=== PATIENT | male | born 1970 | race Hispanic/Latino ===

== ENCOUNTER 2021-02-16 23:24 | Emergency (ER) | payer BC ==
[~2021-02-16] VITALS: Ht 180.3 cm; Wt 122.5 kg
[2021-02-16 23:53] LABS: BASOPHILS # (AUTO) 0.1 (0.0-0.1); BASOPHILS % 0.9 % (0.0-1.0); EOSINOPHILS # (AUTO) 0.1 (0.0-0.4); EOSINOPHILS % 0.9 % (0.0-6.0); HEMATOCRIT 44.1 % (38.2-49.6); HEMOGLOBIN 15.4 g/dL (14.0-18.0); LYMPHOCYTES # (AUTO) 1.6 (1.0-3.2); LYMPHOCYTES % 24.4 % (18.0-39.1); MEAN CORPUSCULAR HGB CONC 34.9 g/dL (31-35); MEAN CORPUSCULAR VOLUME 88.9 fL (81-99); MONOCYTES # (AUTO) 0.6 (0.2-0.8); MONOCYTES % 9.1 % (4.4-11.3); NEUTROPHILS # (AUTO) 4.3 (2.1-6.9); PLATELET COUNT 251 x10e3/uL (140-360); RED BLOOD COUNT 4.96 x10e6/uL (4.3-5.7); RED CELL DISTRIBUTION WIDTH 13.7 % (11.7-14.4)
[2021-02-16 23:55] LABS: CLARITY,URINE CLEAR (CLEAR); COLOR,URINE YELLOW (YELLOW); LEUKOCYTE ESTERASE ,URINE NEGATIVE (NEGATIVE); NITRITE,URINE NEGATIVE (NEGATIVE); PROTEIN,URINE DIPSTICK 1+ (NEGATIVE)
[2021-02-16 23:56] LABS: AMPHETAMINES SCREEN,URINE NEGATIVE (NEGATIVE); BENZODIAZEPINES SCREEN,URINE NEGATIVE (NEGATIVE); KETONES,URINE TRACE (NEGATIVE); PHENCYCLIDINE SCREEN,URINE NEGATIVE (NEGATIVE); URINE UROBILINOGEN 1 mg/dL (0.2 - 1)
[2021-02-17 00:01] LABS: BACTERIA,URINE MODERATE /HPF
[2021-02-17 00:11] LABS: ALBUMIN 4.1 g/dL (3.5-5.0); ALBUMIN/GLOBULIN RATIO 1.3 (0.8-2.0); ANION GAP 16.4 mmol/L (8-16); CALCIUM 8.9 mg/dL (8.4-10.2); CREATININE, SERUM 0.9 mg/dL (0.72-1.25); POTASSIUM 3.4 mmol/L (3.5-5.1)
[2021-02-17 00:18] LABS: CREATINE KINASE MB 17.7 ng/mL (0-5.0)
== END 2021-02-17 02:25 | disposition home or self-care (01) ==
LOC: ER 23:59
DX: R00.2 Palpitations (principal); R06.00 Dyspnea, unspecified; F14.10 Cocaine abuse, uncomplicated; N39.0 Urinary tract infection, site not specified; F17.210 Nicotine dependence, cigarettes, uncomplicated
CPT/HCPCS: 36415; 70450; 71045; 80053; 80307; 81001; 82550; 82553; 84484; 85025; 93005; 99284

== ENCOUNTER 2021-04-18 10:05 | Emergency (ER) | payer BC ==
[~2021-04-18] VITALS: Ht 177.8 cm; Wt 99.8 kg
[2021-04-18] MEDS ORDERED: KETOROLAC TROMETHAMINE 30 MG/ML VIAL IM STA (10:55)
[2021-04-18] MEDS ORDERED: COLCRYS0.6 MG PO (11:02)
[2021-04-18] MEDS ORDERED: PEPCID20 MG PO (11:02)
[2021-04-18] MEDS ORDERED: NAPROXEN250 MG PO (11:02)
[2021-04-18 12:59] VITALS: BP 165/99
== END 2021-04-18 13:03 | disposition home or self-care (01) ==
LOC: ER 10:31
DX: M10.9 Gout, unspecified (principal); M25.861 Other specified joint disorders, right knee; I10 Essential (primary) hypertension
CPT/HCPCS: 73560; 99283; J1885

== ENCOUNTER 2021-10-17 12:41 | Emergency (ER) | payer BC, OTHER ==
[~2021-10-17] VITALS: Ht 177.8 cm; Wt 117.9 kg
[~2021-10-17 12:41] MED LIST: COLCRYS0.6 MG PO; NAPROXEN250 MG PO; PEPCID20 MG PO
[2021-10-17] MEDS ORDERED: IBUPROFEN 600 MG TAB PO STA (12:51)
[2021-10-17] MEDS ORDERED: IBUPROFEN600 MG PO (13:29)
== END 2021-10-17 14:03 | disposition home or self-care (01) ==
LOC: ER 12:50
DX: S82.62XA Displaced fracture of lateral malleolus of left fibula, initial encounter for closed fracture (principal); M25.572 Pain in left ankle and joints of left foot; X50.1XXA Overexertion from prolonged static or awkward postures, initial encounter; Y93.01 Activity, walking, marching and hiking; Y92.89 Other specified places as the place of occurrence of the external cause; I10 Essential (primary) hypertension; M10.9 Gout, unspecified
CPT/HCPCS: 99283

== ENCOUNTER 2022-09-11 01:20 | Emergency (ER) | payer BC ==
[~2022-09-11] VITALS: Ht 177.8 cm; Wt 117.9 kg
[~2022-09-11 01:20] MED LIST changes: +IBUPROFEN600 MG PO
[2022-09-11] MEDS ORDERED: IBUPROFEN 600 MG TAB PO STA (01:44)
[2022-09-11] MEDS ORDERED: ACETAMINOPHEN 325 MG TAB PO ONE (01:45)
[2022-09-11] MEDS ORDERED: SODIUM CHLORIDE 0.9% 1000ML 1,000 ML IV SCH (01:45)
[2022-09-11 01:54] LABS: BASOPHILS % 0.4 % (0.0-1.0); EOSINOPHILS % 0.6 % (0.0-6.0); HEMATOCRIT 45.9 % (38.2-49.6); HEMOGLOBIN 14.8 g/dL (14.0-18.0); LYMPHOCYTES # (AUTO) 1.2 (1.0-3.2); LYMPHOCYTES % 18.4 % (18.0-39.1); MEAN CORPUSCULAR HEMOGLOBIN 30.3 pg (28-32); MEAN CORPUSCULAR HGB CONC 32.2 g/dL (31-35); MEAN CORPUSCULAR VOLUME 94.1 fL (81-99); MONOCYTES # (AUTO) 0.6 (0.2-0.8); MONOCYTES % 8.8 % (4.4-11.3); NEUTROPHILS # (AUTO) 4.8 (2.1-6.9); NEUTROPHILS % 71.1 % (38.7-80.0); PLATELET COUNT 205 x10e3/uL (140-360); RED BLOOD COUNT 4.88 x10e6/uL (4.3-5.7); RED CELL DISTRIBUTION WIDTH 12.8 % (11.7-14.4)
[2022-09-11 02:01] LABS: CLARITY,URINE CLOUDY (CLEAR); COLOR,URINE YELLOW (YELLOW); KETONES,URINE NEGATIVE (NEGATIVE); LEUKOCYTE ESTERASE ,URINE TRACE (NEGATIVE); NITRITE,URINE NEGATIVE (NEGATIVE); PROTEIN,URINE DIPSTICK 2+ (NEGATIVE); URINE UROBILINOGEN 1 mg/dL (0.2 - 1)
[2022-09-11 02:04] LABS: EPITHELIAL CELLS,URINE FEW /LPF; RBC,URINE 21-50 /HPF (0-5); WBC,URINE (MAN) >50 /HPF (0-5)
[2022-09-11 02:05] LABS: BACTERIA,URINE MANY /HPF; MUCUS,URINE MODERATE (RARE); RENAL EPITHELIAL CELLS,URINE FEW
[2022-09-11 02:12] LABS: ALBUMIN 3.3 g/dL (3.5-5.0); ALBUMIN/GLOBULIN RATIO 0.9 (0.8-2.0); ANION GAP 15.5 mmol/L (8-16); CREATININE, SERUM 0.82 mg/dL (0.72-1.25); POTASSIUM 3.5 mmol/L (3.5-5.1)
[2022-09-11] MEDS ORDERED: SODIUM CHLORIDE 0.9% 1000ML 1,000 ML IV ONE (02:15)
[2022-09-11 02:18] LABS: CREATINE KINASE MB 1.1 ng/mL (0-5.0)
[2022-09-11] MEDS ORDERED: PYRIDIUM200 MG PO (03:43)
[2022-09-11] MEDS ORDERED: CEFDINIR125 MG/5 M PO (03:43)
== END 2022-09-11 03:52 | disposition home or self-care (01) ==
LOC: ER 01:24
DX: R50.9 Fever, unspecified (principal); N39.0 Urinary tract infection, site not specified; R30.0 Dysuria; I10 Essential (primary) hypertension; E78.5 Hyperlipidemia, unspecified; M10.9 Gout, unspecified; Z20.822 Contact with and (suspected) exposure to COVID-19
CPT/HCPCS: 36415; 71045; 74176; 80053; 81001; 82550; 82553; 83605; 84484; 85025; 87040; 87086; 87186; 99284; J0696; J7030; U0002